=== PATIENT | male | born 1945 | race Two or more races ===

== ENCOUNTER 2019-06-25 14:22 | Emergency (ER) | payer MEDICARE, OTHER ==
[~2019-06-25] VITALS: Ht 162.6 cm; Wt 64.9 kg
[2019-06-25] MEDS ORDERED: ASPIR 8181 MG ORAL (14:42)
[2019-06-25] MEDS ORDERED: LOSARTAN POTASS50 MG ORAL (14:42)
[2019-06-25] MEDS ORDERED: PRAVASTATIN SOD20 M1 ORAL (14:42)
[2019-06-25] MEDS ORDERED: OYSCO 500+D TA1 EAC1 PO (14:42)
[2019-06-25 14:45] VITALS: BP 115/60
[2019-06-25] MEDS ORDERED: Pantoprazole Inj IV ONE (15:00)
[2019-06-25 15:28] LABS: EOSINOPHILS % (AUTO) 0.8 % (0.0-3.0); HEMATOCRIT 35.9 % (42.0-52.0); MEAN CORPUSCULAR VOLUME 99 FL (80-99); MONOCYTES % (AUTO) 7.5 % (1.0-10.0); NEUTROPHILS % (AUTO) 77.7 % (45.0-75.0); PLATELET COUNT 206 K/UL (150-450); RED BLOOD COUNT 3.62 M/UL (4.70-6.10); RED CELL DISTRIBUTION WIDTH 13.2 % (11.6-14.8); WHITE BLOOD COUNT 15.4 K/UL (4.8-10.8)
[2019-06-25 15:39] LABS: ANION GAP 12 mmol/L (5-15); BLOOD UREA NITROGEN 24 mg/dL (7-18); CALCIUM 9.1 MG/DL (8.5-10.1); CARBON DIOXIDE 26 MMOL/L (21-32); CHLORIDE 103 MMOL/L (98-107); CREATININE 1.8 MG/DL (0.55-1.30); POTASSIUM 4.1 MMOL/L (3.5-5.1); SODIUM 141 MMOL/L (136-145)
[2019-06-25 15:43] LABS: ALANINE AMINOTRANSFERASE 17 U/L (12-78); ALBUMIN 3.4 G/DL (3.4-5.0); ALKALINE PHOSPHATASE 83 U/L (46-116); ASPARTATE AMINO TRANSFERASE 17 U/L (15-37); BILIRUBIN,TOTAL 0.3 MG/DL (0.2-1.0)
[2019-06-25 16:16] LABS: APPEARANCE,URINE SLIGHTLY CLOUDY; BILIRUBIN, URINE 3+ (NEGATIVE); GLUCOSE, URINE (UA) NEGATIVE (NEGATIVE); KETONES,URINE 2+ (NEGATIVE); LEUKOCYTE ESTERASE ,URINE 2+ (NEGATIVE); NITRITE,URINE NEGATIVE (NEGATIVE); PH,URINE 5 (4.5-8.0); PROTEIN,URINE 3+ (NEGATIVE); UROBILINOGEN,URINE 4 MG/DL (0.0-1.0)
[2019-06-25 16:19] LABS: COLOR,URINE AMBER
[2019-06-25 16:50] VITALS: BP 122/74
--- NOTE | 2019-06-25 17:32 | Emergency Room Report ---
History of Present Illness General Chief Complaint: Gastrointestinal Bleed Source: Patient Present Illness HPI 73-year-old male presents ED for evaluation. Complaining of blood in stool since yesterday. Bright red blood. Denies any abdominal pain. Denies any nausea or vomiting. Denies taking blood thinners. No other aggravating relieving factors. Denies any other associated symptoms. Allergies: Coded Allergies: No Known Allergies (Unverified , 06/25/19) Patient History Past Medical History: HTN, other - high cholesterol Past Surgical History: none Pertinent Family History: none Social History: Denies: smoking, alcohol use, drug use Immunizations: UTD Reviewed Nursing Documentation: PMH: Agreed; PSxH: Agreed Nursing Documentation-PMH Past Medical History: No History, Except For Hx Hypertension: Yes - high cholesterol Review of Systems All Other Systems: negative except mentioned in HPI Physical Exam Vital Signs Date Time Temp Pulse Resp B/P (MAP) Pulse Ox O2 Delivery O2 Flow Rate FiO2 06/25/19 14:35 97.9 83 16 104/57 (73) 96 Room Air Sp02 EP Interpretation: reviewed, normal General Appearance: no apparent distress, alert, GCS 15, non-toxic Head: normocephalic, atraumatic Eyes: bilateral eye normal inspection, bilateral eye PERRL ENT: hearing grossly normal, normal pharynx, no angioedema, normal voice Neck: full range of motion, supple/symm/no masses Respiratory: chest non-tender, lungs clear, normal breath sounds, speaking full sentences Cardiovascular #1: regular rate, rhythm, no edema Cardiovascular #2: 2+ carotid (R), 2+ carotid (L), 2+ radial (R), 2+ radial (L) , 2+ dorsalis pedis (R), 2+ dorsalis pedis (L) Gastrointestinal: normal bowel sounds, non tender, soft, non-distended, no guarding, no rebound Rectal: deferred Genitourinary: normal inspection, no CVA tenderness Musculoskeletal: back normal, normal range of motion, gait/station normal, non- tender Neurologic: alert, motor strength/tone normal, oriented x3, sensory intact, responsive, speech normal Psychiatric: judgement/insight normal, memory normal, mood/affect normal, no suicidal/homicidal ideation Reflexes: 3+ bicep (R), 3+ bicep (L), 3+ tricep (R), 3+ tricep (L), 3+ knee (R) , 3+ knee (L) Skin: no rash Lymphatic: no adenopathy Medical Decision Making Diagnostic Impression: Primary Impression: LGI bleed ER Course Hospital Course 73-year-old F presents to ED with rectal bleeding Differential diagnoses include: UGIB, LGIB, hemorrhoids 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 BUN/Cr elevated. Because of insurance patient will be transferred I feel this is a highly complex case requiring extensive working including EKG/ Rhythm strip, Xray/CT/US, Blood/urine lab work, repeat exams while in ED, and administration of strong opiates/narcotics for pain control, admission to hospital or close patient follow up. Diagnosis - LGIB transferred to floor in serious condition Labs Test 06/25/19 15:07 06/25/19 15:45 White Blood Count 15.4 K/UL (4.8-10.8) Red Blood Count 3.62 M/UL (4.70-6.10) Hemoglobin 12.0 G/DL (14.2-18.0) Hematocrit 35.9 % (42.0-52.0) Mean Corpuscular Volume 99 FL (80-99) Mean Corpuscular Hemoglobin 33.1 PG (27.0-31.0) Mean Corpuscular Hemoglobin Concent 33.4 G/DL (32.0-36.0) Red Cell Distribution Width 13.2 % (11.6-14.8) Platelet Count 206 K/UL (150-450) Mean Platelet Volume 8.1 FL (6.5-10.1) Neutrophils (%) (Auto) 77.7 % (45.0-75.0) Lymphocytes (%) (Auto) 13.0 % (20.0-45.0) Monocytes (%) (Auto) 7.5 % (1.0-10.0) Eosinophils (%) (Auto) 0.8 % (0.0-3.0) Basophils (%) (Auto) 1.0 % (0.0-2.0) Prothrombin Time 10.2 SEC (9.30-11.50) Prothromb Time International Ratio 1.0 (0.9-1.1) Activated Partial Thromboplast Time 24 SEC (23-33) Sodium Level 141 MMOL/L (136-145) Potassium Level 4.1 MMOL/L (3.5-5.1) Chloride Level 103 MMOL/L (98-107) Carbon Dioxide Level 26 MMOL/L (21-32) Anion Gap 12 mmol/L (5-15) Blood Urea Nitrogen 24 mg/dL (7-18) Creatinine 1.8 MG/DL (0.55-1.30) Estimat Glomerular Filtration Rate 37.0 mL/min (>60) Glucose Level 130 MG/DL (74-106) Calcium Level 9.1 MG/DL (8.5-10.1) Total Bilirubin 0.3 MG/DL (0.2-1.0) Aspartate Amino Transf (AST/SGOT) 17 U/L (15-37) Alanine Aminotransferase (ALT/SGPT) 17 U/L (12-78) Alkaline Phosphatase 83 U/L (46-116) Total Protein 6.7 G/DL (6.4-8.2) Albumin 3.4 G/DL (3.4-5.0) Globulin 3.3 g/dL Albumin/Globulin Ratio 1.0 (1.0-2.7) Lipase 157 U/L (73-393) Urine Color Gloria Urine Appearance Slightly cloudy Urine pH 5 (4.5-8.0) Urine Specific Gilchrist 1.020 (1.005-1.035) Urine Protein 3+ (NEGATIVE) Urine Glucose (UA) Negative (NEGATIVE) Urine Ketones 2+ (NEGATIVE) Urine Blood 1+ (NEGATIVE) Urine Nitrite Negative (NEGATIVE) Urine Bilirubin 3+ (NEGATIVE) Urine Ictotest Negative (NEGATIVE) Urine Urobilinogen 4 MG/DL (0.0-1.0) Urine Leukocyte Esterase 2+ (NEGATIVE) Urine RBC 2-4 /HPF (0 - 0) Urine WBC 5-10 /HPF (0 - 0) Urine Squamous Epithelial Cells None /LPF (NONE/OCC) Urine Calcium Oxalate Crystals Occasional /LPF (NONE) Urine Bacteria Moderate /HPF (NONE) Urine Hyaline Casts Tntc /LPF (NONE) Last Vital Signs Date Time Temp Pulse Resp B/P (MAP) Pulse Ox O2 Delivery O2 Flow Rate FiO2 06/25/19 16:50 98.3 68 15 122/74 97 Room Air Status: improved Disposition: XFER SHT-TRM HOSP Condition: Serious Referrals: [facility],REFERRING (PCP) Herman Sandhu MD Jun 25, 2019 17:32
[2019-06-25 17:57] VITALS: BP 118/67
== END 2019-06-25 17:57 | disposition short-term general hospital (02) ==
LOC: EMR 15:25
DX: K92.2 Gastrointestinal hemorrhage, unspecified (principal); I10 Essential (primary) hypertension; E78.00 Pure hypercholesterolemia, unspecified; D72.829 Elevated white blood cell count, unspecified; R94.4 Abnormal results of kidney function studies
CPT/HCPCS: 36415; 80053; 81003; 83690; 85025; 85610; 85730; 86850; 86900; 86901; 87086; 96361; 96374; 99284; C9113; J7030; J7040

== ENCOUNTER 2020-06-08 10:49 | Emergency (ER) | payer MEDICARE ==
[~2020-06-08] VITALS: Ht 162.6 cm; Wt 63.5 kg
[~2020-06-08 10:49] MED LIST: ASPIR 8181 MG ORAL; LOSARTAN POTASS50 MG ORAL; OYSCO 500+D TA1 EAC1 PO; PRAVASTATIN SOD20 M1 ORAL
[2020-06-08] MEDS ORDERED: Oxymetazoline 0.05% Na Spray 30ml NASAL ONE (11:00)
--- NOTE | 2020-06-08 11:20 | Emergency Room Report ---
History of Present Illness General Chief Complaint: Nosebleed Source: Patient, EMS Present Illness HPI Disclaimer: Please note that this report is being documented using DRAGON technology. This can lead to erroneous entry secondary to incorrect interpretation by the dictating instrument. HPI: 74-year-old male presents with epistaxis. Woke in his usual state of health but then developed a traumatic nosebleed of the left nares. Applied pressure and ice and controlled hemostasis after approximately 15 minutes. Denies bleeding to the back of the throat. Denies lightheadedness, presyncope, palpitations, nausea or other symptoms. Denies headache, fever, chills, difficulty breathing. Does not take blood thinners aside from baby aspirin. Arrives with elevated blood pressures. He ran out of his medication several days ago. Does not know which medications he is taking. PMH: Hypertension PSH: Reviewed Allergies: Reviewed Social Hx: Reviewed Allergies: Coded Allergies: No Known Allergies (Unverified , 06/25/19) COVID-19 Screening Contact w/high risk pt: No Experienced COVID-19 symptoms?: No COVID-19 Testing performed WAFER SLICER: No Nursing Documentation-PMH Past Medical History: No History, Except For Hx Hypertension: Yes Review of Systems All Other Systems: negative except mentioned in HPI Physical Exam Vital Signs Date Time Temp Pulse Resp B/P (MAP) Pulse Ox O2 Delivery O2 Flow Rate FiO2 06/08/20 10:40 98.6 101 18 200/99 (132) 96 Room Air 06/08/20 11:10 4.0 General: Awake and alert, no acute distress, hypertensive HEENT: NC/AT. EOMI. PERRLA. There is dried blood in the left nares with no obvious culprit bleed. Right naris is clear. No bleeding in the retropharynx. Cardiovascular: RRR. S1 and S2 normal. No murmur appreciated Resp: Normal work of breathing. No cough, wheezing or crackles appreciated Abdomen: Abdomen is soft, nondistended. Nontender Skin: Intact. No abrasions, laceration or rash over the exposed skin MSK: Normal tone and bulk. Moving all extremities. No obvious deformity. Neuro: Awake and alert. Mentating appropriately. Medical Decision Making Diagnostic Impression: Primary Impression: Hypertension Additional Impression: Epistaxis ER Course 74-year-old male history of hypertension presents with elevated blood pressures and epistaxis. Epistaxis controlled prior to arrival. Afrin was given. No obvious culprit vessel identified that would be amenable to cauterization. Arrives with elevated blood pressures and given hydralazine which quickly improved his pressures. Patient related to stated he was taking blood pressure medication however I discussed with his son and tt appears he was taken off losartan several years ago and has been diet controlled since. Will restart losartan until he can see his PMD. His labs returned within normal limits including platelet count and coagulation studies. Patient was monitored without recurrence of bleed. I discussed observation admission with family for blood pressure control and optimization however they declined. They stated that they live with him and can keep a close eye on him and if he needed to return to the hospital they would bring him back but at this time do not want him to stay. He has close follow-up with his PMD, Dr. Montanez and will see him as soon as possible. They are coming to pick him up. Patient is comfortable feeling well at this time. Stable for outpatient follow-up with strict return precautions. Laboratory Tests Test 06/08/20 11:05 White Blood Count 8.3 K/UL (4.8-10.8) Red Blood Count 5.39 M/UL (4.70-6.10) Hemoglobin 16.7 G/DL (14.2-18.0) Hematocrit 51.8 % (42.0-52.0) Mean Corpuscular Volume 96 FL (80-99) Mean Corpuscular Hemoglobin 31.0 PG (27.0-31.0) Mean Corpuscular Hemoglobin Concent 32.3 G/DL (32.0-36.0) Red Cell Distribution Width 13.4 % (11.6-14.8) Platelet Count 274 K/UL (150-450) Mean Platelet Volume 8.0 FL (6.5-10.1) Neutrophils (%) (Auto) 50.4 % (45.0-75.0) Lymphocytes (%) (Auto) 34.9 % (20.0-45.0) Monocytes (%) (Auto) 8.4 % (1.0-10.0) Eosinophils (%) (Auto) 5.0 % (0.0-3.0) H Basophils (%) (Auto) 1.3 % (0.0-2.0) Prothrombin Time 10.7 SEC (9.30-11.50) Prothrombin Time INR 1.0 (0.9-1.1) Activated Partial Thromboplast Time 28 SEC (23-33) Sodium Level 142 MMOL/L (136-145) Potassium Level 4.1 MMOL/L (3.5-5.1) Chloride Level 106 MMOL/L (98-107) Carbon Dioxide Level 27 MMOL/L (21-32) Anion Gap 10 mmol/L (5-15) Blood Urea Nitrogen 13 mg/dL (7-18) Creatinine 1.0 MG/DL (0.55-1.30) Estimated Glomerular Filtration Rate > 60 mL/min (>60) Glucose Level 126 MG/DL (74-106) H Calcium Level 8.5 MG/DL (8.5-10.1) Last Vital Signs Date Time Temp Pulse Resp B/P (MAP) Pulse Ox O2 Delivery O2 Flow Rate FiO2 06/08/20 11:10 100 4.0 06/08/20 10:40 98.6 101 18 200/99 (132) Room Air Disposition: HOME, SELF-CARE Condition: Stable Scripts Losartan Potassium* (LOSARTAN POTASSIUM*) 50 Mg Tablet 50 MG ORAL DAILY for htn for 30 Days, #30 TAB Prov: Antonio Mendez MD 06/08/20 Antonio Mendez MD Jun 08, 2020 11:20
[2020-06-08 11:31] LABS: BASOPHILS % (AUTO) 1.3 % (0.0-2.0); HEMATOCRIT 51.8 % (42.0-52.0); HEMOGLOBIN 16.7 G/DL (14.2-18.0); LYMPHOCYTES % (AUTO) 34.9 % (20.0-45.0); MEAN CORPUSCULAR VOLUME 96 FL (80-99); MONOCYTES % (AUTO) 8.4 % (1.0-10.0); NEUTROPHILS % (AUTO) 50.4 % (45.0-75.0); PLATELET COUNT 274 K/UL (150-450); RED BLOOD COUNT 5.39 M/UL (4.70-6.10); RED CELL DISTRIBUTION WIDTH 13.4 % (11.6-14.8); WHITE BLOOD COUNT 8.3 K/UL (4.8-10.8)
[2020-06-08 11:32] VITALS: BP 157/67
[2020-06-08 11:37] LABS: ANION GAP 10 mmol/L (5-15); BLOOD UREA NITROGEN 13 mg/dL (7-18); CALCIUM 8.5 MG/DL (8.5-10.1); CARBON DIOXIDE 27 MMOL/L (21-32); CHLORIDE 106 MMOL/L (98-107); POTASSIUM 4.1 MMOL/L (3.5-5.1); SODIUM 142 MMOL/L (136-145)
--- NOTE | 2020-06-08 11:46 | NUR ---
ED Nurse Note: pt son calling and relates that pt is not currently on htn meds but has been in the past. relates pmd as dr garnica. son speaking with dr. rivera.
[2020-06-08] MEDS ORDERED: LOSARTAN POTASS50 MG ORAL (11:50)
== END 2020-06-08 12:20 | disposition home or self-care (01) ==
LOC: EDBD 10:49 → EMR 11:33
DX: R04.0 Epistaxis (principal); I10 Essential (primary) hypertension
CPT/HCPCS: 36415; 80048; 85025; 85610; 85730; 96374; 99284; J0360

== ENCOUNTER 2020-06-16 23:08 | Emergency (ER) | payer MEDICARE ==
[~2020-06-16] VITALS: Ht 162.6 cm; Wt 63.5 kg
--- NOTE | 2020-06-16 23:20 | NUR ---
Patient came in the ED with complaints of nosebleed since 10 AM today. Denies any trauma.
--- NOTE | 2020-06-16 23:39 | Emergency Room Report ---
History of Present Illness General Chief Complaint: Nosebleed Source: Patient Present Illness HPI Disclaimer: Please note that this report is being documented using [employer] technology. This can lead to erroneous entry secondary to incorrect interpretation by the dictating instrument. HPI: 74-year-old male history of hypercholesterolemia presents for evaluation of nosebleed. Patient started bleeding from the right nostril earlier this morning. Denies direct trauma. Takes a daily 81 mg aspirin but no other anticoagulants or antiplatelet agents. Has been applying pressure and using Afrin nasal spray without significant improvement. Denies brisk pulsatile ble eding. No prior history of bleeding episodes. Has been using Afrin over the past few days for nasal congestion. 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 EOMI. there is slight oozing from the right nostril with passage of clots. Spitting up blood clots as well. Can identify a culprit vessel on visual examination. No bleeding from the left nares. Mild dried blood and streaky clots in the retropharynx. Resp: Normal work of breathing Skin: Intact. No abrasions, laceration or rash over the exposed skin MSK: Normal tone and bulk. Moving all extremities. No obvious deformity. Neuro: Awake and alert. Mentating appropriately Medical Decision Making Diagnostic Impression: Primary Impression: Epistaxis Additional Impression: Hypertension ER Course 74-year-old male presents with right-sided epistaxis. Rapid Rhino soaked in Afrin and placed with good control of bleeding. Patient arrives hypertensive but this resolved without medication. Denied headache, palpitations, chest pain or other symptoms. CBC and coags returned within normal limits. Rapid Rhino was removed after 1 hour. Patient was monitored for an additional hour without recurrence of bleed. He is feeling well and like to be discharged. He will fol low up with his PMD. Nasal precautions discussed. Instructed to return with new or worsening symptoms. He understands and agrees with this treatment plan. Laboratory Tests Test 06/16/20 23:32 White Blood Count 13.6 K/UL (4.8-10.8) H Red Blood Count 5.08 M/UL (4.70-6.10) Hemoglobin 16.1 G/DL (14.2-18.0) Hematocrit 48.5 % (42.0-52.0) Mean Corpuscular Volume 96 FL (80-99) Mean Corpuscular Hemoglobin 31.7 PG (27.0-31.0) H Mean Corpuscular Hemoglobin Concent 33.2 G/DL (32.0-36.0) Red Cell Distribution Width 13.1 % (11.6-14.8) Platelet Count 250 K/UL (150-450) Mean Platelet Volume 8.1 FL (6.5-10.1) Neutrophils (%) (Auto) 62.4 % (45.0-75.0) Lymphocytes (%) (Auto) 25.0 % (20.0-45.0) Monocytes (%) (Auto) 8.1 % (1.0-10.0) Eosinophils (%) (Auto) 3.4 % (0.0-3.0) H Basophils (%) (Auto) 1.0 % (0.0-2.0) Prothrombin Time 11.0 SEC (9.30-11.50) Prothrombin Time INR 1.0 (0.9-1.1) Activated Partial Thromboplast Time 27 SEC (23-33) Last Vital Signs Date Time Temp Pulse Resp B/P (MAP) Pulse Ox O2 Delivery O2 Flow Rate FiO2 06/16/20 23:14 98.2 108 18 190/84 (119) 95 Room Air Disposition: HOME, SELF-CARE Condition: Improved Antonio Mendez MD Jun 16, 2020 23:39
[2020-06-16 23:43] VITALS: BP 153/75
[2020-06-16 23:49] LABS: EOSINOPHILS % (AUTO) 3.4 % (0.0-3.0); HEMATOCRIT 48.5 % (42.0-52.0); HEMOGLOBIN 16.1 G/DL (14.2-18.0); MEAN CORPUSCULAR VOLUME 96 FL (80-99); MONOCYTES % (AUTO) 8.1 % (1.0-10.0); NEUTROPHILS % (AUTO) 62.4 % (45.0-75.0); PLATELET COUNT 250 K/UL (150-450); RED BLOOD COUNT 5.08 M/UL (4.70-6.10); RED CELL DISTRIBUTION WIDTH 13.1 % (11.6-14.8); WHITE BLOOD COUNT 13.6 K/UL (4.8-10.8)
--- NOTE | 2020-06-17 00:34 | NUR ---
Rapid rhino applied by Dr. Mendez one hour ago,pt well tolerated. Nosebleed has stoppeed. pt is now resting. calm.
[2020-06-17 00:43] VITALS: BP 122/69
--- NOTE | 2020-06-17 02:00 | NUR ---
ER DISCHARGE NOTE: Patient is cleared to be discharged per ERMD, pt is aox4, on room air, with stable vital signs. pt was given dc instructions, pt was able to verbalize understanding, pt id band and iv site removed without complications. pt is able to ambulate with steady gait. pt took all belongings.
== END 2020-06-17 02:00 | disposition home or self-care (01) ==
LOC: EMR 23:48
DX: R04.0 Epistaxis (principal); I10 Essential (primary) hypertension; E78.00 Pure hypercholesterolemia, unspecified; Z79.82 Long term (current) use of aspirin
CPT/HCPCS: 36415; 85025; 85610; 85730; 99283